=== PATIENT | female | born 1960 | race Caucasian/White ===

== ENCOUNTER 2019-03-18 07:45 | Inpatient (IN) ==
[2019-03-18] MEDS ORDERED: PEPCID ONE (08:12)
[2019-03-18] MEDS ORDERED: KEFZOL 1 GM/D5W 2 GM/100 ML IVPB ONE (08:12)
[2019-03-18] MEDS ORDERED: LR 1,000 ML ONE (08:12)
[2019-03-18] MEDS ORDERED: DIPRIVAN 1% ONE (09:15)
[2019-03-18] MEDS ORDERED: VERSED ONE (09:15)
[2019-03-18] MEDS ORDERED: QUELICIN (DOSE) ONE (09:15)
[2019-03-18] MEDS ORDERED: XYLOCAINE-MPF 2% ONE (09:15)
[2019-03-18] MEDS ORDERED: FENTANYL ONE (09:16)
[2019-03-18] MEDS ORDERED: KETAMINE ONE (09:32)
[2019-03-18] MEDS ORDERED: PRECEDEX ONE (10:29)
[2019-03-18] MEDS ORDERED: EPHEDRINE ONE (10:37)
[2019-03-18] MEDS ORDERED: OFIRMEV 1000 MG/ISOTONIC SOLN 1,000 MG/100 ML BOTTLE ONE (11:31)
[2019-03-18] MEDS ORDERED: TORADOL ONE (11:55)
[2019-03-18] MEDS ORDERED: XYLOCAINE 1% ONE (14:07)
[2019-03-18] MEDS ORDERED: MARCAINE 0.5% PF ONE (14:07)
[2019-03-18] MEDS ORDERED: ZOFRAN IV PRN (14:33)
[2019-03-18] MEDS ORDERED: SENOKOT PO PRN (14:33)
[2019-03-18] MEDS ORDERED: LR 500 ML ONE (14:41)
[2019-03-18] MEDS ORDERED: KEFZOL 1 GM/D5W 1 GM/50 ML IVPB IV SCH (14:45)
[2019-03-18] MEDS: DILAUDID IV PRN ×3 (16:05→23:04)
[2019-03-18] MEDS: OXY IR PO PRN ×2 (17:11→20:41)
[2019-03-18] MEDS: KEFZOL 1 GM/D5W 1 GM/50 ML IVPB IV SCH (17:20)
[2019-03-18] MEDS ORDERED: FOSAMAX PO SCH (18:30)
--- NOTE | 2019-03-18 18:47 | OPERATIVE NOTE ---
PROCEDURE DATE: 03/18/2019 PREOPERATIVE DIAGNOSES: 1. Left Charcot ankle. 2. Left Charcot hindfoot. 3. Left Charcot midfoot. 4. Left equinovarus deformity. POSTOPERATIVE DIAGNOSES: 1. Left Charcot ankle. 2. Left Charcot hindfoot. 3. Left Charcot midfoot. 4. Left equinovarus deformity. PROCEDURES: 1. Left ankle fusion. 2. Left subtalar fusion. 3. Left midtarsal osteotomy with multiple joint fusion. 4. Left tendo Achilles lengthening. 5. Left posterior tibial tendon lengthening. 6. Modifier 22 for unusual procedure. SURGEON: Bennie Locke MD MEDICAL TECHNICIAN: SIMON Hatfield, who was an integral part of the case. She helped with all aspects of the case. She helped to increase our OR efficiency greatly. ANESTHESIA: General with LMA. TOURNIQUET TIME: One hour 30 minutes. It was let down for an hour and then up for about 30 more minutes. IMPLANTS: 1. [employer] 11.5 x 270 nail. 2. [employer] solid beaming screws, two 5.0 screws and one 6.5 screw. DISPOSITION: To PACU, hemodynamically stable. INDICATION FOR PROCEDURE: Ms. Farnsworth is a 59-year-old female who has had a lot of deformity secondary to Charcot neuroarthropathy. Unfortunately, she really is unable to bear weight on it at this point because of her deformity and the risk for ulceration, so I discussed with her about nonoperative and operative interventions. She wanted go ahead and proceed with operative intervention to get the foot stable. I went over the risks and benefits with her. She expressed understanding and wished to proceed. DESCRIPTION OF PROCEDURE: Ms. Farnsworth was identified in the preoperative holding area. The left foot was marked as the correct surgical site. She was then wheeled to the operating room and placed supine on the operating table. All bony prominences were well padded. She was induced under general anesthesia. LMA was placed. Tourniquet was placed to the left thigh. The left lower extremity was then prepped with chlorhexidine gluconate scrub and then ChloraPrep, draped in normal sterile fashion. Surgical pause was performed. We identified the correct patient, correct site and the correct procedure. Preoperative antibiotics were given. Esmarch was used to exsanguinate the left lower extremity and the tourniquet was inflated to 300 mmHg. We started with a lateral incision that curved, starting from the midfoot and curved up the fibula. Dissection was carried down all the way to the lateral talus. The calcaneus was pretty much completely dislocated out from under the talus. I tried to free things up but there was a lot of contracture medially. I did perform a tendo Achilles lengthening through a stab incision posteriorly, and completely released the Achilles tendon to get the calcaneus down. That corrected our equinus deformity. I realized that I was not going to be able to adequately get the calcaneus under the talus. There was going to be too much tension on that medial side and I was worried about her blood supply, and so we ended up performing a talectomy and took out the talus. We used a lot of it as bone graft to fill in the big defect near the end of the case. After we got the talus out, I then flat-cut the distal fibula and the medial malleolus. I denuded all the cartilage off of it and drilled it, and prepared the joint for fusion. Then we got the foot around. Once I got the calcaneus back into more of a normal position, one could tell that there was a huge rocker bottom deformity in the midfoot, right around the transverse tarsal joint area. I ended up also performing a midfoot osteotomy, taking a wedge out, and that was mainly lateral. That is where she had a lot of the rocker bottom deformity. I then closed that down, and that allowed us to get a plantigrade foot. I then prepared that joint. I prepared the posterior facet of the calcaneus as well. I released the posterior tibial tendon deep as well, to help correct our deformity, and I was able to swing that calcaneus back where it needed to be. I temporarily pinned it into position and temporarily pinned the midfoot osteotomy in position to get what my final position would look like. We were happy with it. Her foot was back under the tibia, and she had a plantigrade foot. After we prepared all the joint surfaces, I then used the talus as autograft and then tamped it into position. We then made an incision on the plantar aspect of the foot, reamed and then placed an 11.5 [facility] hindfoot nail up. We secured it proximally in the calcaneus. The posterior to anterior calcaneal screw we let go long past the osteotomy site in the midfoot as well, to get some better purchase. That performed our ankle fusion and our subtalar fusion all at the same time. I then put two 5.0 bolts and one 6.5 bolt across the midfoot osteotomy from the bases of the metatarsals into the calcaneus, and that secured my midfoot osteotomy. After this, the foot was nice and stable. We did have a good bit of bone graft in the front to help fill that whole defect. At this point we closed everything in a layered fashion, 0 Vicryl for the deep layer, 2-0 Vicryl for the subcutaneous and nylon on the skin. Adaptic, 4 x 4s, ABD, Sof-Rol and posterior splint were applied. Tourniquet was let down during the middle of the case, and she had good capillary refill return to the toes. Then it was put up near the end for closing and then we put it down, and she still had good capillary refill at the very end of the case. She was then awoken from general anesthesia, moved to her own bed and taken to the PACU in stable condition. PLAN: Postoperatively she is nonweightbearing to the left lower extremity. She will be admitted. I did make this a 22 modifier because it was an extremely difficult case to get the foot swung around and back into good position. It was extremely difficult because of the preoperative deformity that was there. cc: Bennie Locke MD
[2019-03-18] MEDS: PERIDEX MT SCH (20:25)
[2019-03-18] MEDS: XANAX PO SCH (20:25)
[2019-03-18] MEDS ORDERED: BUPRENORPHINE HCL sublingual SCH (21:00)
[2019-03-18] MEDS: SUBOXONE 8 MG/2 MG SL SCH (21:00)
[2019-03-18] MEDS ORDERED: BELSOMRA PO SCH ×2 (21:00)
[2019-03-18] MEDS ORDERED: NALOXONE HCL sublingual SCH (21:00)
[2019-03-19] MEDS: OXY IR PO PRN ×4 (01:53→23:19)
[2019-03-19] MEDS: KEFZOL 1 GM/D5W 1 GM/50 ML IVPB IV SCH ×2 (01:53→11:26)
[2019-03-19 05:32] LABS: HEMATOCRIT 33.9 % (37.0-47.0)
[2019-03-19] MEDS: XANAX PO SCH ×4 (05:39→23:27)
[2019-03-19] MEDS: DILAUDID IV PRN ×4 (05:45→20:03)
[2019-03-19] MEDS: LOVENOX SUBQ SCH (05:46)
[2019-03-19] MEDS: TRINTELLIX PO SCH (08:43)
[2019-03-19] MEDS: MOBIC PO SCH (08:45)
[2019-03-19] MEDS: PRILOSEC PO SCH (08:45)
[2019-03-19] MEDS: VITAMIN D PO SCH (08:46)
[2019-03-19] MEDS: TUMS PO SCH (08:46)
[2019-03-19] MEDS: NEURONTIN PO SCH ×3 (08:46→17:29)
[2019-03-19] MEDS: PERIDEX MT SCH ×2 (08:47→23:17)
[2019-03-19] MEDS: SUBOXONE 8 MG/2 MG SL SCH ×2 (08:59→23:18)
--- NOTE | 2019-03-19 10:19 | ORTHOPAEDICS PROGRESS NOTE ---
DATE: 03/19/2019 SUBJECTIVE DATA: Ms. Farnsworth is resting piece comfortably in bed. She states she is having some mild pain, but overall doing well. OBJECTIVE DATA: Left lower extremity exam: Capillary refill is less than 2 seconds. The 2nd toe does have some ecchymosis. The color is good to the rest of the toes. She does have altered sensation to the foot. The splint does have some bloody drainage posteriorly. Otherwise is clean, dry, and intact. ASSESSMENT: Status post left Charcot reconstruction. PLAN: We are going to plan on getting Ms. Farnsworth set up for rehab. I am going to order a [facility] consultation today. Physical therapy is working on her on transitioning. She is nonweightbearing to left lower extremity. We will plan on discharging her on Friday. Dictated by SIMON Hatfield for Bennie Locke MD cc: SIMON Hatfield MD
--- NOTE | 2019-03-19 12:12 | Diag Imaging Result Doc PS360 ---
EXAM: CHEST-1 VIEW 03/19/2019 HISTORY: REHAB TECHNIQUE: AP portable upright at 1201 COMMENT: The lungs are clear and the heart and pulmonary vascularity are within normal limits. Compared to 06/22/2018 the pulmonary vascularity is much less prominent. There are apparent old fractures of the fifth through seventh ribs on the left. IMPRESSION: No evidence of acute disease. Electronically signed by Vern Arellano 03/19/2019 12:10 PM
[2019-03-20] MEDS: XANAX PO SCH ×4 (03:20→22:20)
[2019-03-20] MEDS: OXY IR PO PRN ×6 (03:33→20:42)
[2019-03-20 06:02] LABS: HEMATOCRIT 33.4 % (37.0-47.0); HEMOGLOBIN 10.6 g/dL (12.0-16.0)
[2019-03-20] MEDS: LOVENOX SUBQ SCH (06:39)
[2019-03-20] MEDS: PRILOSEC PO SCH (06:39)
[2019-03-20] MEDS ORDERED: FOSAMAX PO SCH (07:00)
[2019-03-20] MEDS: NEURONTIN PO SCH ×3 (10:21→17:31)
[2019-03-20] MEDS: VITAMIN D PO SCH (10:21)
[2019-03-20] MEDS: SUBOXONE 8 MG/2 MG SL SCH ×2 (10:22→22:18)
[2019-03-20] MEDS: TRINTELLIX PO SCH (10:22)
[2019-03-20] MEDS: TUMS PO SCH (10:22)
[2019-03-20] MEDS: MOBIC PO SCH (10:22)
[2019-03-20] MEDS: PERIDEX MT SCH ×2 (10:24→20:42)
--- NOTE | 2019-03-20 13:33 | ORTHOPAEDICS PROGRESS NOTE ---
DATE: 03/20/2019 Ms. Farnsworth is seen today status post her foot and ankle surgery. At the present time, she is afebrile with stable vital signs. She is relatively comfortable. Her bandage is clean and dry. She is slow to mobilize but making progress. There are no complications. Will check on her again tomorrow. Plan is possibly discharge Friday for rehab placement. cc: MD Bennie Moreno MD
[2019-03-21] MEDS: DILAUDID IV PRN (00:12)
[2019-03-21] MEDS: OXY IR PO PRN ×5 (03:24→20:40)
[2019-03-21] MEDS: XANAX PO SCH ×4 (04:13→21:00)
[2019-03-21] MEDS: LOVENOX SUBQ SCH (06:20)
[2019-03-21] MEDS: PRILOSEC PO SCH (06:20)
[2019-03-21] MEDS: PERIDEX MT SCH ×2 (08:51→20:40)
[2019-03-21] MEDS: VITAMIN D PO SCH (08:52)
[2019-03-21] MEDS: TUMS PO SCH (08:52)
[2019-03-21] MEDS: TRINTELLIX PO SCH (08:52)
[2019-03-21] MEDS: MOBIC PO SCH (08:52)
[2019-03-21] MEDS: SUBOXONE 8 MG/2 MG SL SCH (08:53)
[2019-03-21] MEDS: NEURONTIN PO SCH ×3 (08:53→18:01)
--- NOTE | 2019-03-21 09:41 | ORTHOPAEDICS PROGRESS NOTE ---
DATE: 03/21/2019 SUBJECTIVE: Ms. Farnsworth is seen today for Dr. Carrillo. She is comfortable at the present time. She is gradually mobilizing. OBJECTIVE: Vital signs are stable. Her splint and bandage are clean is clean and dry. There is no pain on passive extension of the digits or toes. There is good capillary refill. PLAN: We will plan on possible discharge planning tomorrow if she continues to mobilize well. cc: MD Bennie Moreno MD
[2019-03-22] MEDS: SUBOXONE 8 MG/2 MG SL SCH ×2 (00:36→11:14)
[2019-03-22] MEDS: OXY IR PO PRN ×4 (05:24→15:57)
[2019-03-22] MEDS: PRILOSEC PO SCH (06:23)
[2019-03-22] MEDS: LOVENOX SUBQ SCH (06:24)
[2019-03-22] MEDS: XANAX PO SCH ×3 (06:26→15:08)
--- NOTE | 2019-03-22 06:59 | HEMO/ONC PROGRESS NOTE ---
DATE: 03/22/2019 SUBJECTIVE: Ms. Farnsworth was lying in bed. Overall pain is controlled. She is ready to be discharged. OBJECTIVE: On left lower extremity exam, dressing is clean, dry, and intact. The splint is holding the foot well. She is able to move the toes, dorsiflex and plantar flex well. She has decreased sensation to the toes, which is there from her neuropathy. ASSESSMENT: Status post left ankle hindfoot and midfoot Charcot reconstruction. PLAN: Mr. Farnsworth should be ready for discharge today to rehab. She is nonweightbearing on the left lower extremity. She can use a knee scooter or walker for an ambulatory aid, and then I would like to see her in the office on 03/26/2019, and will change her from a splint to a cast that day. cc: Bennie Locke MD
[2019-03-22] MEDS: PERIDEX MT SCH (10:00)
[2019-03-22] MEDS: VITAMIN D PO SCH (10:00)
[2019-03-22] MEDS: MOBIC PO SCH (10:00)
[2019-03-22] MEDS: TUMS PO SCH (10:00)
[2019-03-22] MEDS: NEURONTIN PO SCH ×2 (10:00→15:08)
[2019-03-22] MEDS: TRINTELLIX PO SCH (11:14)
--- NOTE | 2019-03-22 13:42 | DISCHARGE SUMMARY ---
ADMISSION DATE: 03/18/2019 DISCHARGE DATE: 03/22/2019 ADMITTING DIAGNOSIS: Left Charcot neuropathy. DISCHARGE DIAGNOSES: 1. Left Charcot neuropathy. 2. Peripheral neuropathy. PROCEDURES: On 03/18/2018, Dr. Locke performed a left Charcot reconstruction. HOSPITAL COURSE: Ms. Farnsworth is a 59-year-old female who was being seen by Dr. Locke in clinic for quite some time. She had developed a lot of deformity secondary to Charcot neuropathy. Dr. Locke discussed surgical intervention and she wished to proceed. On 03/18/2019, Dr. Locke took her to the operating room for a Charcot reconstruction. After verbal and written consent was obtained, she was taken to the operating room. Satisfactory anesthesia was obtained. She tolerated the procedure well. She was transferred to the recovery room. After satisfactory recovery, she was transferred to [address] [place] [address]. She has been recovering well. She does have a lot issues with mobility. She does live at home alone. We are concerned about her rehab phase. We really want her being as mobile as possible while remaining nonweightbearing on this left side. It was decided that rehab would be the best option for her postoperatively. She has worked with physical therapy to work on transferring and using the walker. She has done well with that. However, she has had some increased pain but, overall, it is tolerable. She is on Suboxone but we are going to cover her with pain medicine during her postoperative course and leave her on the Suboxone. We did discuss this with the anesthesiologist, who was in agreement. DISCHARGE VITAL SIGNS: Her temperature is 98.7 degrees, pulse 64, respirations 16, blood pressure 103/61. She is 93% on room air. DISCHARGE LABORATORY: Hemoglobin and hematocrit are 10.6 and 33.4. At this time, she is ready for discharge. DISCHARGE MEDICATIONS: We will continue her Lovenox 40 mg subcutaneous daily for 30 days, Fosamax 70 mg p.o. every 7 days, Xanax 0.5 mg p.o. q.6 hours, Suboxone 1.5 sublingual b.i.d., vitamin D 5000 units p.o. daily, Neurontin 800 mg p.o. t.i.d., Percocet 5 mg p.o. every 4 to 6 hours as needed for pain, Mobic 15 mg p.o. daily, Prilosec 40 mg p.o. daily, Trintellix 20 mg p.o. daily, Belsomra 20 mg p.o. at bedtime. DISCHARGE DISPOSITION: Ms. Farnsworth is being discharged to a rehab facility. While there, she will be able to continue to work on her mobilization and strengthening. She will be nonweightbearing on this left side for approximately 2 months. We do want her learning fall prevention strategies and being able to mobilize well on the other foot while being nonweightbearing on the left side. She will remain in the splint until followup in the office. We do want to see her back in 1 to 2 weeks after discharge from the hospital. We will take that splint down and put her in a formal cast. She will not require any incision care while she is in the cast. We did discuss signs of postoperative infection and what to watch for. The patient understands. Please call the office with any questions or concerns. Dictated by SIMON Hatfield for Bennie Locke MD cc: SIMON Hatfield MD
[2019-03-22 15:24] VITALS: BP 114/65
== END 2019-03-22 16:06 | DRG 494 ==
LOC: SURHOLD 07:45 → 4N 15:38
PROVIDERS: ADMIT Orthopaedic Surgery; ATTEND Orthopaedic Surgery